=== PATIENT | female | born 1940 | race Caucasian/White ===

== ENCOUNTER 2016-09-19 06:49 | Emergency (ER) | payer MEDICARE, OTHER ==
[2016-09-19 07:22] LABS: BASOPHILS 0.3 % (0.0-2.0); EOSINOPHILS 3.5 % (0.0-6.0); EOSINOPHILS# 0.2 X 10^3uL (0.0-0.4); HEMATOCRIT 35.8 % (36.0-48.0); HEMOGLOBIN 11.8 g/dL (12.0-16.0); LYMPHOCYTES 17.6 % (20.0-40.0); LYMPHOCYTES# 1.1 X 10^3uL (0.8-3.8); MEAN CELL VOLUME 92.4 fL (80.0-100.0); MEAN CORPUS. HGB CONCENTRATION 32.8 g/dL (32.0-36.0); MEAN CORPUSCULAR HEMOGLOBIN 30.3 pg (29.0-35.0); MONOCYTES 10.7 % (2.0-10.0); MONOCYTES# 0.7 X 10^3uL (0.2-1.0); NEUTROPHILS 67.9 % (54.0-75.0); NEUTROPHILS# 4.4 X 10^3uL (2.6-6.7); PLATELET COUNT 234 X 10^3uL (130-440); RED BLOOD COUNT 3.88 X 10^6uL (4.20-6.10); RED CELL DISTRIBUTION WIDTH 15.4 % (11.5-14.5); WHITE BLOOD COUNT 6.4 X 10^3uL (3.9-10.7)
[2016-09-19 07:24] LABS: BLOOD UREA NITROGEN 37 mg/dL (7-17); CALCIUM 9.5 mg/dL (8.4-10.2); CHLORIDE 107 mmol/L (98-107); EST GLOMERULAR FILTRATION RATE 24 mL/min; GLUCOSE 109 mg/dL (70-100); POTASSIUM 4.4 mmol/L (3.5-5.1); SODIUM 142 mmol/L (137-145)
--- NOTE | 2016-09-19 07:30 | RADIOLOGY REPORT ---
HISTORY: Generalized weakness. COMPARISON: None. TECHNIQUE: Limited frontal portable radiograph of the chest. IMPRESSION: 1. Mild elevation right portion of diaphragm. Mildly decreased lung volumes with prominence of the p ulmonary interstitium likely secondary to changes of vascular crowding. 2. Calcified nodules right lung apex most likely calcified granuloma. 3. No evidence of consolidation, pleural fluid collection or pneumothorax. 4. Cardiomediastinal silhouette top limits of normal to borderline increased in size which may be ac centuated by mildly decreased lung volumes. 5. Posttraumatic changes proximal right humerus. Final Electronic Signature: This report was electronically signed by Timo Miranda MD on 09/19/2016 7: 27 AM. deshawn /
[2016-09-19 08:05] LABS: URINE MUCUS NONE SEEN (Up to 25%); URINE RBC NONE SEEN (0-5/hpf)
[2016-09-19 08:19] LABS: URINE APPEARANCE CLEAR; URINE BILIRUBIN NEGATIVE (NEGATIVE); URINE BLOOD NEGATIVE (NEGATIVE); URINE COLOR YELLOW; URINE GLUCOSE NORMAL (NEGATIVE); URINE KETONE NEGATIVE (NEGATIVE); URINE LEUKOCYTE ESTERASE 25 WBC/uL (1+) (NEGATIVE); URINE NITRITE NEGATIVE (NEGATIVE); URINE PROTEIN NEGATIVE (NEG - TRACE); URINE SPECIFIC GRAVITY 1.015 (0.001-1.035); URINE SQUAMOUS EPITHELIAL CELL 0-5/hpf (<= 15/hpf); URINE UROBILINOGEN 0.2mg/dL (Normal) (NEG-1mg/dL)
[2016-09-19 08:20] LABS: URINE AMORPHOUS SEDIMENT UP TO 25%/lpf (Up to 25%); URINE OVAL FAT BODIES PRESENT (None Seen)
--- NOTE | 2016-09-19 11:38 | ER NURSING DOCUMENTATION ---
Nurse's Notes [facility] Name:Diana Enriquez Age:76 yrs Sex:Female :1940 Arrival Date:09/19/2016 Time:06:49 Bed4 Private MD: Diagnosis:Adult Failure to Thrive;Acute Renal/Kidney Failure, Nontraumatic;UTI (Cystitis) Presentation: 09/19 06:57 Presenting complaint: Patient states: Feeling weak this AM. Being treated with Cipro tg for recent UTI. Transition of care: patient was not received from another setting of care. 06:57 Acuity: HILDA 2 tg 07:00 Notified ED Physician of patient's arrival and CC Dr. Segura notified. tg 07:12 Method Of Arrival: EMS: 410 tg Triage Assessment: 07:13 General: Appears drowsy. pt states she feels miserable and can not elaborate.. Behavior st is drowsy. Pain: Denies pain. Neuro: Level of Consciousness is drowsy . Cardiovascular: Capillary refill < 3 seconds Heart tones present. Respiratory: Airway is patent Respiratory effort is even, unlabored, Respiratory pattern is regular, symmetrical, Breath sounds are diminished bilaterally. pt not breathing deeply. GI: No deficits noted. : Reports current UTI. Derm: Rash noted that is red, in creases of abd . Musculoskeletal: Reports feeling week. Historical: - Allergies: PENICILLINS; - Home Meds: 1. anastrozole oral 2. Carbidopa-Levodopa Oral 3. carvedilol oral 4. entresto 5. Furosemide Oral 6. Simvastatin Oral 7. Spironolactone Oral 8. tamsulosin oral 9. Xarelto oral 10. Probiotic oral 11. B12 12. Calcium with D - PMHx: PARKINSONS; breast CA; incontinence; HIGH CHOLESTEROL; ATRIAL FIB; - PSHx: mastectomy; - Tetanus: unknown. - Ebola Screening: : Patient denies exposure to infectious person. Patient denies travel to an Ebola-affected area in the 21 days before illness onset. . - Immunization history: Pneumococcal vaccine status is unknown. - Social history: Smoking status: Patient states was never smoker of tobacco. Patient/guardian denies using alcohol, marijuana. Screenin:19 Infectious Disease Risk Unable to Obtain. Abuse screen: pt feels safe at home. st Nutritional screening: No deficits noted. Assessment: 10:04 General: pt given permission to take her own meds by Dr. Segura.. st Vital Signs: 06:52 BP 146 / 69 (auto/); st 06:55 Pulse 76 MON; Resp 19; Pulse Ox 89% on R/A; st 07:18 BP 146 / 69; Pulse 65; Resp 22; Temp 97.6; Pulse Ox 91% on R/A; Pain 0/10; st 08:21 BP 129 / 53 (auto/); st 08:25 Pulse 59 MON; Resp 11; Pulse Ox 95% 2 lpm ; st 08:30 BP 127 / 60 (auto/); st 08:40 Pulse 62 MON; Resp 10; Pulse Ox 96% ; st 09:00 BP 122 / 48 (auto/); st 09:20 Pulse 58 MON; Resp 14; Pulse Ox 95% ; st 09:30 BP 133 / 59 (auto/); st 10:00 BP 130 / 46 (auto/); st 10:10 Pulse 66 MON; Resp 13; Pulse Ox 95% ; st 10:30 BP 127 / 43 (auto/); st 10:40 Pulse 65 MON; Resp 12; Pulse Ox 92% ; st 10:40 BP 102 / 45; Pulse 65; Pulse Ox 93% ; st ED Course: 06:50 Patient arrived in ED. ama 06:56 Drake Victor, RN is Primary Nurse. tg 06:58 Triage completed. tg 07:10 Maintain field IV. Dressing intact. tg 07:11 Valuables Remains with patient Patient has correct armband on for positive tg identification. Placed in gown. Bed in low position. Call light in reach. Side rails up X2. Adult w/ patient. identification printing machine setter on. Pulse ox on. Assisted with bedpan. 07:19 CHEST; SINGLE VIEW [id number] In Process Unspecified. EDMS 07:23 Leighton Segura MD is Attending Physician. tl1 07:25 EKG done. (by ED staff). Reviewed by Leighton Segura MD. tg 07:28 Oxygen Oxygen administration via nasal cannula @ 2L/min. tg 09:28 EKG attached tg Administered Medications: No medications were administered Output: 07:10 Urine: 200ml (Voided); Total: 200ml. tg Outcome: 11:06 [facility] Time: September 19, 2016 at 11:06 Patient's face sheet was faxed to accepting facility. Face Sheet included patient's name, address, age, gender, contact information and insurance information. Patient [place] be [place]: [facility] [place] [facility] [place]. 11:23 Transferred: Report called to: Amisha merida 11:31 ER care complete, transfer ordered by . tl1 11:37 Transferred: Nurse and Physician Charting and Notes were sent to Accepting Facility. st All tests and/or procedures with results, if applicable, were sent to accepting facility. 11:37 Condition: stable 11:37 Discharge instructions given to patient, Instructed on discharge instructions, follow up and referral plans. 11:37 Patient [address] ED[address] st Signatures: Dispatcher [employer] Drake Banks, RN Ana Valerio RN RN st Averdick, Andrew, Reg Reg Leighton Pham MD MD tl1
--- NOTE | 2016-09-19 11:38 | ER PHYSICIAN DOCUMENTATION ---
Physician Documentation [facility] Name:Diana Enriquez Age:76 yrs Sex:Female :1940 Arrival Date:09/19/2016 Time:06:49 Bed4 Private MD: Leighton Keenan Disposition: 09/20 08:20 Chart complete. tl1 Disposition: 09/19/16 11:31 Transfer ordered to [facility]. Diagnosis are Adult Failure to Thrive, Acute Renal/Kidney Failure, Nontraumatic, UTI (Cystitis). - Reason for transfer: Higher level of care. - Accepting physician is AGUERO. - Condition is Good. - Problem is new. - Symptoms are unchanged. COBRA Form completed? Yes Transfer - Mode of Transportation Ambulance HPI: 09/19 07:26 This 76 yrs old Female presents to ER via EMS with complaints of General tl1 Weakness. 09/20 07:54 She has a long h/o Parkinson's, obesity, breast cancer, and recently, a very sedentary 1 lifestyle. She has a very limited ability to contribute to her history. She his here from [place], for the last 5 days, with her and family to celebrate her 50th wedding anniversary. She was in her usual state of health until yesterday when she developed fatigue. At about 2 AM SHE awakened to urinate and got to the bathroom and back with her walker. About 1/2 hour later she told her that she was unable to move, but what was meant by that was unclear, and they both fell back asleep. This morning she complains of ongoing malaise, fatigue and weakness, but has no specific complaint. She denies h/a, focal weakness, visual problems, ST, rhinorrhea, chest pain, cough, f/c/s. No . abdominal pain, vomiting, diarrhea, UTI symptoms or rash.. Historical: - Allergies: PENICILLINS; - Home Meds: 1. anastrozole oral 2. Carbidopa-Levodopa Oral 3. carvedilol oral 4. entresto 5. Furosemide Oral 6. Simvastatin Oral 7. Spironolactone Oral 8. tamsulosin oral 9. Xarelto oral 10. Probiotic oral 11. B12 12. Calcium with D - PMHx: PARKINSONS; breast CA; incontinence; HIGH CHOLESTEROL; ATRIAL FIB; - PSHx: mastectomy; - Tetanus: unknown. - Ebola Screening: : Patient denies exposure to infectious person. Patient denies travel to an Ebola-affected area in the 21 days before illness onset. . - Immunization history: Pneumococcal vaccine status is unknown. - Social history: Smoking status: Patient states was never smoker of tobacco. Patient/guardian denies using alcohol, marijuana. ROS: 08:00 Constitutional: Positive for fatigue, malaise, Negative for chills, fever. tl1 08:00 Cardiovascular: Negative for chest pain, orthopnea, palpitations. 08:00 Respiratory: Negative for cough, hemoptysis, pleurisy, shortness of breath, wheezing. 08:00 Abdomen/GI: Negative for abdominal pain, nausea, vomiting, diarrhea, hematemesis, black/tarry stool, rectal bleeding. 08:00 : Negative for urinary symptoms. 08:00 Neuro: Negative for altered mental status, dizziness, loss of consciousness, seizure activity, speech changes, visual changes. Exam: 08:00 Head/Face: Normocephalic, atraumatic. tl1 Eyes: Pupils equal round and reactive to light, extra-ocular motions intact. Lids and lashes normal. Conjunctiva and sclera are non-icteric and not injected. Cornea within normal limits. Periorbital areas with no swelling, redness, or edema. ENT: Nares patent. No nasal discharge, no septal abnormalities noted. Tympanic membranes are normal and external auditory canals are clear. Oropharynx with no redness, swelling, or masses, exudates, or evidence of obstruction, uvula midline. Mucous membranes moist. 08:00 Neck: Trachea midline, no thyromegaly or masses palpated, and no cervical tl1 lymphadenopathy. Supple, full range of motion without nuchal rigidity, or vertebral point tenderness. No Meningismus. 08:00 Constitutional: The patient appears in no acute distress, alert, awake, well developed, well groomed, listless. 08:00 Cardiovascular: Rate: normal, Rhythm: regular, Heart sounds: normal, Edema: is not appreciated, JVD: is not appreciated. 08:00 Respiratory: Respirations: normal, Breath sounds: are normal, no rales, rhonchi, no stridor, no wheezing. 08:00 Abdomen/GI: Inspection: abdomen appears normal, Bowel sounds: normal, Palpation: abdomen is soft and non-tender. 08:00 Musculoskeletal/extremity: Exam is negative for acute changes. 08:00 Skin: Exam negative for acute changes. 08:00 Neuro: Mentation: slow to respond, Memory: recent memory is impaired, Cranial nerves: grossly normal, Motor: moves all fours, 5-/5 hand smoking pipe maker and foot plantar/dorsiflexion bilaterally, Deep tendon reflexes are 0 (absent) in the right patellar, right Achilles, left patellar and left Achilles, 1 (trace) + in the right brachioradialis and left brachioradialis. Vital Signs: 09/19 06:52 BP 146 / 69 (auto/); st 06:55 Pulse 76 MON; Resp 19; Pulse Ox 89% on R/A; st 07:18 BP 146 / 69; Pulse 65; Resp 22; Temp 97.6; Pulse Ox 91% on R/A; Pain 0/10; st 08:21 BP 129 / 53 (auto/); st 08:25 Pulse 59 MON; Resp 11; Pulse Ox 95% 2 lpm ; st 08:30 BP 127 / 60 (auto/); st 08:40 Pulse 62 MON; Resp 10; Pulse Ox 96% ; st 09:00 BP 122 / 48 (auto/); st 09:20 Pulse 58 MON; Resp 14; Pulse Ox 95% ; st 09:30 BP 133 / 59 (auto/); st 10:00 BP 130 / 46 (auto/); st 10:10 Pulse 66 MON; Resp 13; Pulse Ox 95% ; st 10:30 BP 127 / 43 (auto/); st 10:40 Pulse 65 MON; Resp 12; Pulse Ox 92% ; st 10:40 BP 102 / 45; Pulse 65; Pulse Ox 93% ; st MDM: 07:23 Patient medically screened. tl1 07:53 Patient medically screened. tl1 07:54 Differential Diagnosis sepsis, flu, electrolyte problems, drug interactions. Data tl1 reviewed: vital signs, nurses notes, EMS record, lab test result(s), CBC, electrolytes, hepatic panel, urinalysis, EKG, and as a result, I will admit patient. Counseling: I had a detailed discussion with the patient and/or guardian regarding: the historical points, exam findings, and any diagnostic results supporting the discharge/admit diagnosis, lab results, radiology results, the need for further work-up and treatment in the hospital. ECG:. 09:28 EKG attached tg 11:00 ED course: She was stable. Her urine shows pyuria and signs of nephrotic syndrome, but tl1 I doubt pyelonephritis or urosepsis. I suspect her bladder is colonized with bacteria but uncertain about infection. This elevation of her creatinine (2.1) is apparently new. The cause for her generalized weakness and failure to thrive is not at all clear and she needs to be admitted to sort this out. Her family is going down to [place] today, prior to heading back home and they request hospitalization at [facility]. I spoke with hospitalist Genaro Aguero at [facility] and he has graciously agreed to admit her for further evaluation and care.. 09/19 07:25 Order name: CBC AUTO DIF, MDIF/RMOR IF IND; Complete Time: 07:48 EDMS 09/19 07:27 Order name: DDIMER; Complete Time: 07:48 EDOH 09/19 07:35 Order name: BASIC METABOLIC PANEL; Complete Time: 07:48 EDOH 09/19 07:46 Interpretation: SODIUM 142; POTASSIUM 4.4; CHLORIDE 107; CARBON DIOXIDE 23; GLUCOSE tl1 109; BLOOD UREA NITROGEN 37; CREATININE 2.1; EST GLOMERULAR FILTRATION RATE 24; CALCIUM 9.5. 09/19 07:35 Order name: BNP,NT-PRO; Complete Time: 07:48 EDMS 09/19 07:47 Interpretation: Abnormal: BNP,NT-PRO 729. tl1 09/19 08:21 Order name: UA W/ MICRO -CULTURE IF IND; Complete Time: 08:59 EDOH 09/19 08:57 Interpretation: Normal Except: URINE LEUKOCYTE ESTERASE 25 WBC/uL (1+); URINE WBC tl1 10-25/hpf; URINE BACTERIA 10-20 ORGANISMS/hpf; URINE OVAL FAT BODIES PRESENT. 09/20 07:47 Order name: URINE CULTURE EDOH 09/21 08:22 Order name: NEGATIVE SENSITIVITY PANEL EDOH 09/21 08:22 Order name: NEGATIVE SENSITIVITY PANEL EDOH 09/19 07:19 Order name: CHEST; SINGLE VIEW [id number]; Complete Time: 07:48 EDMS 09/19 07:03 Order name: 12-lead EKG; Complete Time: 07:28 tg 09/19 07:03 Order name: Continuous Cardiac Monitoring; Complete Time: : tg 09/19 07:03 Order name: I & O; Complete Time: : tg 09/19 07:03 Order name: Iv Saline Lock; Complete Time: : tg 09/19 07:03 Order name: Oxygen; Complete Time: : tg 09/19 07:03 Order name: Pulse Ox Continuous; Complete Time: : tg EC:21 Rate is 61 beats/min. Rhythm is regular, Normal Sinus Rhythm. QRS [place] is Normal. MD tl1 interval is normal at 197 msec. QRS interval is normal at 94 msec. QT interval is normal at 430 msec. No Q waves. T waves are Normal. No ST changes noted. Clinical impression: NSR, LVH. Dispensed Medications: No medications were administered Signatures: Drake Victor RN RN Ana Mcknight RN Leighton Monzon MD MD tl1
== END 2016-09-19 11:38 | disposition short-term general hospital (02) ==
LOC: ER 06:49
DX: R62.7 Adult failure to thrive (principal); N17.9 Acute kidney failure, unspecified; N39.0 Urinary tract infection, site not specified; B96.20 Unspecified Escherichia coli [E. coli] as the cause of diseases classified elsewhere; R53.1 Weakness; R53.81 Other malaise; R53.83 Other fatigue; R94.4 Abnormal results of kidney function studies; B96.4 Proteus (mirabilis) (morganii) as the cause of diseases classified elsewhere; G20 Parkinson's disease; Z85.3 Personal history of malignant neoplasm of breast; I48.91 Unspecified atrial fibrillation; Z79.899 Other long term (current) drug therapy; Z79.01 Long term (current) use of anticoagulants; Z99.89 Dependence on other enabling machines and devices; Z99.81 Dependence on supplemental oxygen; Z74.3 Need for continuous supervision
CPT/HCPCS: 71010; 80048; 81001; 83880; 85025; 85379; 87077; 87086; 87186; 93005; 99285; A0425; A0427; A0429